=== PATIENT | female | born 1955 | race Caucasian/White ===

== ENCOUNTER → 2018-11-02 | Outpatient (CLI) | payer OTHER ==
--- NOTE | 2018-11-02 08:33 | WOMENS IMAGING REPORT ---
EXAM DESCRIPTION: BILAT SCREENING MAMMO W/CAD COMPLETED DATE/TIME: 11/02/2018 7:46 am REASON FOR STUDY: Z12.31 ENCOUNTER FOR SCREENING MAMMOGRAM FOR MALIGNANT NEOPLASM OF [id number] E NCNTR SCREEN MAMMOGRAM FOR MALIGNANT NEOPLASM OF JING COMPARISON: 2008, 2013 TECHNIQUE: Standard craniocaudal and mediolateral oblique views of each breast recorded using Prism Microwavea l acquisition. LIMITATIONS: None. FINDINGS: RIGHT BREAST MASSES: No suspicious masses. CALCIFICATIONS: No new or suspicious calcifications. ARCHITECTURAL DISTORTION: In the right retroareolar region, architectural distortion is present on th e CC view which may be in the 12 o'clock retroareolar region on MLO view. This requires further inve stigation with compression magnification views in the CC and MLO orientations, right breast 90 medio lateral view, and right breast ultrasound with particular attention to the retroareolar and 12 o'cloc k periareolar region. DEVELOPING DENSITY: None. ASYMMETRY: None noted. OTHER: No other significant findings. LEFT BREAST MASSES: No suspicious masses. CALCIFICATIONS: No new or suspicious calcifications. ARCHITECTURAL DISTORTION: None. DEVELOPING DENSITY: None. ASYMMETRY: None noted. OTHER: No other significant findings. Read with the assistance of CAD. .[facility] - R2 Cenova Version 1.3 .[facility] - R2 Cenova Version 1.3 .[facility] - R2 Cenova Version 2.4 .[facility] - R2 Cenova Version 2.4 .[facility] - R2 Show Worker Version 9.2 IMPRESSION: Architectural distortion on right breast CC view for which follow-up diagnostic mammogra ms and ultrasound are recommended. No mammographic evidence for malignancy left breast BREAST DENSITY: c. The breasts are heterogeneously dense, which may obscure small masses. BIRAD: 0 Incomplete: Needs Additional Imaging Evaluation and/or prior Mammograms for Comparison. RECOMMENDATION: RECOMMENDED FOLLOW-UP: Additional right breast diagnostic mammograms and ultrasound The patient will be contacted for additional imaging. COMMENT: The patient has been notified of the results by letter per MQSA requirements. Additional no tification policies are in place for contacting patient with suspicious or incomplete findings. Quality ID #[id number]: The [employer] recommends an annual screening mammogram for women aged 40 years or over. This facility utilizes a reminder system to ensure that all patients receive reminder letters, and/or direct phone calls for appointments. This includes reminders for routine scr eening mammograms, diagnostic mammograms, or other Breast Imaging Interventions when appropriate. Th is patient will be placed in the appropriate reminder system. The [employer] (ACR) has developed recommendations for screening MRI of the breast s in certain patient populations, to be used in conjunction with mammography. Breast MRI surveillanc e may be appropriate for women with more than 20% lifetime risk of developing breast cancer as deter mined by genetic testing, significant family history of the disease, or history of mantle radiation f or Hodgkins Disease. ACR Practice Guidelines 2008. TECHNICAL DOCUMENTATION: FINDING NUMBER: (1) ASSESSMENT: (1) JOB ID: [id number] [employer]- All Rights Reserved Reading location - IP/workstation name: [email or web address]
== END ==
LOC: WI 07:02
PROVIDERS: ATTEND Obstetrics & Gynecology Gynecology
DX: Z12.31 Encounter for screening mammogram for malignant neoplasm of breast (principal)
CPT/HCPCS: 77067

== ENCOUNTER → 2018-11-12 | Outpatient (CLI) | payer OTHER ==
--- NOTE | 2018-11-12 09:44 | WOMENS IMAGING REPORT ---
EXAM DESCRIPTION: 3D DX MAMMO RIGHT UNILAT; U/S BREAST UNILAT LIMITED COMPLETED DATE/TIME: 11/12/2018 9:18 am; 11/12/2018 9:27 am REASON FOR STUDY: INCONCLUSSIVE MAMMOGRAM;R92.2; RT BREAST ARCHITECTURAL DISTORTION R92.2 R92.2 INC ONCLUSIVE MAMMOGRAM COMPARISON: Multiple since 2008 TECHNIQUE: Cone compression craniocaudal and mediolateral oblique images of the right breast recorde d using digital acquisition and breast tomosynthesis. Right whole breast 90 mediolateral view. Right CC MLO and 90 mediolateral tomosynthesis. Right br east ultrasound. LIMITATIONS: None. FINDINGS: BREAST LATERALITY: Right MASSES: In the retroareolar region, a spiculated 1.5 cm mass is present with architectural distortion and ill-defined margins. No associated microcalcifications CALCIFICATIONS: No new or suspicious calcifications. ARCHITECTURAL DISTORTION: As above DEVELOPING DENSITY: None. ASYMMETRY: None noted. OTHER: No other significant findings. Read with the assistance of CAD. .[facility] - R2 Environmental Health Safety Engineer Version 9.2 Right breast ultrasound: Right breast ultrasound and right axilla ultrasound was performed in the right retroareolar region, a hypoechoic solid 1.5 x 2 cm nodule is present taller than wide with internal color flow highly suspi cious for malignancy. This correlates with the spiculated mass on the mammogram/ tomosynthesis today . Right axilla was examined with ultrasound. A 2.2 by 2 x 1.6 cm hypoechoic solid nodule is present wi th loss of central hilar fat worrisome for a malignant lymph node. IMPRESSION: Right breast retroareolar spiculated mass highly suspicious for malignancy BI-RADS 5 Right axillary enlarged hypoechoic lymph node highly suspicious for malignancy BI-RADS 5 BREAST DENSITY: c. The breasts are heterogeneously dense, which may obscure small masses. BIRAD: 5 Highly suggestive of malignancy. Biopsy should be performed in the absence of clinical cont ra-indication. RECOMMENDATION: RECOMMENDED FOLLOW UP: Ultrasound-guided core biopsy and post biopsy clip placement of the right breast retroareolar mass and right axillary lymph node with immediate post biopsy follow -up two-view mammograms SPECIFIC INTERVENTION/IMAGING/CONSULTATION RECOMMENDED:Ultrasound-guided core biopsy and post biopsy clip placement of the right breast retroareolar mass and right axillary lymph node, with immediate po st biopsy follow-up two-view mammograms COMMUNICATION:These findings were not discussed with the patient at time of service. Patient notifie d by letter COMMENT: The patient has been notified of the results by letter per SA requirements. Additional no tification policies are in place for contacting patient with suspicious or incomplete findings. Quality ID #[id number]: The [employer] recommends an annual screening mammogram for women aged 40 years or over. This facility utilizes a reminder system to ensure that all patients receive reminder letters, and/or direct phone calls for appointments. This includes reminders for routine scr eening mammograms, diagnostic mammograms, or other Breast Imaging Interventions when appropriate. Th is patient will be placed in the appropriate reminder system. TECHNICAL DOCUMENTATION: FINDING NUMBER: (1) ASSESSMENT: (1) JOB ID: [id number] [employer]- All Rights Reserved Reading location - IP/workstation name: [email or web address]
--- NOTE | 2018-11-12 09:44 | WOMENS IMAGING REPORT ---
EXAM DESCRIPTION: 3D DX MAMMO RIGHT UNILAT; U/S BREAST UNILAT LIMITED COMPLETED DATE/TIME: 11/12/2018 9:18 am; 11/12/2018 9:27 am REASON FOR STUDY: INCONCLUSSIVE MAMMOGRAM;R92.2; RT BREAST ARCHITECTURAL DISTORTION R92.2 R92.2 INC ONCLUSIVE MAMMOGRAM COMPARISON: Multiple since 2008 TECHNIQUE: Cone compression craniocaudal and mediolateral oblique images of the right breast recorde d using digital acquisition and breast tomosynthesis. Right whole breast 90 mediolateral view. Right CC MLO and 90 mediolateral tomosynthesis. Right br east ultrasound. LIMITATIONS: None. FINDINGS: BREAST LATERALITY: Right MASSES: In the retroareolar region, a spiculated 1.5 cm mass is present with architectural distortion and ill-defined margins. No associated microcalcifications CALCIFICATIONS: No new or suspicious calcifications. ARCHITECTURAL DISTORTION: As above DEVELOPING DENSITY: None. ASYMMETRY: None noted. OTHER: No other significant findings. Read with the assistance of CAD. .[facility] - R2 Lens Grinding Machine Operator Version 9.2 Right breast ultrasound: Right breast ultrasound and right axilla ultrasound was performed in the right retroareolar region, a hypoechoic solid 1.5 x 2 cm nodule is present taller than wide with internal color flow highly suspi cious for malignancy. This correlates with the spiculated mass on the mammogram/ tomosynthesis today . Right axilla was examined with ultrasound. A 2.2 by 2 x 1.6 cm hypoechoic solid nodule is present wi th loss of central hilar fat worrisome for a malignant lymph node. IMPRESSION: Right breast retroareolar spiculated mass highly suspicious for malignancy BI-RADS 5 Right axillary enlarged hypoechoic lymph node highly suspicious for malignancy BI-RADS 5 BREAST DENSITY: c. The breasts are heterogeneously dense, which may obscure small masses. BIRAD: 5 Highly suggestive of malignancy. Biopsy should be performed in the absence of clinical cont ra-indication. RECOMMENDATION: RECOMMENDED FOLLOW UP: Ultrasound-guided core biopsy and post biopsy clip placement of the right breast retroareolar mass and right axillary lymph node with immediate post biopsy follow -up two-view mammograms SPECIFIC INTERVENTION/IMAGING/CONSULTATION RECOMMENDED:Ultrasound-guided core biopsy and post biopsy clip placement of the right breast retroareolar mass and right axillary lymph node, with immediate po st biopsy follow-up two-view mammograms COMMUNICATION:These findings were not discussed with the patient at time of service. Patient notifie d by letter COMMENT: The patient has been notified of the results by letter per SA requirements. Additional no tification policies are in place for contacting patient with suspicious or incomplete findings. Quality ID #[id number]: The [employer] recommends an annual screening mammogram for women aged 40 years or over. This facility utilizes a reminder system to ensure that all patients receive reminder letters, and/or direct phone calls for appointments. This includes reminders for routine scr eening mammograms, diagnostic mammograms, or other Breast Imaging Interventions when appropriate. Th is patient will be placed in the appropriate reminder system. TECHNICAL DOCUMENTATION: FINDING NUMBER: (1) ASSESSMENT: (1) JOB ID: [id number] [employer]- All Rights Reserved Reading location - IP/workstation name: [email or web address]
== END ==
LOC: WI 08:09
PROVIDERS: ATTEND Obstetrics & Gynecology Gynecology
DX: R92.2 Inconclusive mammogram (principal)
CPT/HCPCS: 76642

== ENCOUNTER → 2019-03-15 | Outpatient (CLI) | payer OTHER ==
--- NOTE | 2019-03-15 12:49 | WOMENS IMAGING REPORT ---
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 TECHNIQUE: Dual-Energy X-ray Absorptiometry (DEXA) of the AP Spine and Hip. LIMITATIONS: None. FINDINGS: LUMBAR SPINE: The bone mineral density (BMD) measured from L1-L4 in the AP projection correlates with a T-score of 1.0, which is normal as defined by the World Health Organization. BMD Change vs Baseline: N/A HIP: The bone mineral density (BMD) measured in the left hip correlates with a T-score of -0.5 in the femo ral neck, which is normal as defined by the World Health Organization. BMD Change vs Baseline: N/A 10 year Fracture Risk Assessment: Major Osteoporotic Fracture: Not available. Hip Fracture: Not available. IMPRESSION: 1. LUMBAR SPINE WHO CLASSIFICATION: Normal 2. HIP WHO CLASSIFICATION: Normal OVERALL ASSESSMENT: WHO CLASSIFICATION: Norm COMMENT: The World Health Organization defines low BMD as follows: T-score: Normal: Greater than -1.0 Osteopenia: Between -1.0 and -2.5 Osteoporosis: Less than -2.5 without fractures Established osteoporosis: Less than -2.5 with fractures In general, you may wish to consider: Diagnosis Treatment Follow-up DEXA Normal BMD Prevention 2-3 years Osteopenia Prevention/Therapy 1-2 years Osteoporosis Therapy Yearly TECHNICAL DOCUMENTATION: JOB ID: [id number] [employer]- All Rights Reserved Reading location - IP/workstation name: [email or web address]
== END ==
LOC: WI 11:07
PROVIDERS: ATTEND Internal Medicine Hematology & Oncology
DX: C50.911 Malignant neoplasm of unspecified site of right female breast (principal); Z17.0 Estrogen receptor positive status [ER+]
CPT/HCPCS: 77080

== ENCOUNTER → 2019-05-25 | Outpatient (CLI) | payer OTHER ==
--- NOTE | 2019-05-25 09:01 | WOMENS IMAGING REPORT ---
EXAM DESCRIPTION: U/S ABDOMEN LIMITED COMPLETED DATE/TIME: 05/25/2019 8:49 am REASON FOR STUDY: R74.8 ABNORMAL LEVELS OF OTHER SERUM ENZYMES R74.8 ABNORMAL LEVELS OF OTHER SERUM ENZYMES COMPARISON: None. TECHNIQUE: Dynamic and static grayscale images acquired of the abdomen and recorded on PACS. Additio nal selected color Doppler and spectral images recorded. LIMITATIONS: None. FINDINGS: PANCREAS: Visualized portions the pancreas are normal in appearance. LIVER: No masses. Echotexture normal. LIVER VASCULATURE: Normal directional flow of the main portal vein and hepatic veins. GALLBLADDER: No stones. Normal wall thickness. No pericholecystic fluid. ULTRASOUND-DETECTED KIM'S SIGN: Negative. INTRAHEPATIC DUCTS AND COMMON DUCT: CBD and intrahepatic ducts normal caliber. No filling defects. INFERIOR VENA CAVA: Normal flow. AORTA: No aneurysm. RIGHT KIDNEY: Normal size. Normal echogenicity. No solid or suspicious masses. No hydronephrosis. No calcifications. There is a simple 3 cm cyst. PERITONEAL AND RIGHT PLEURAL SPACE: No ascites or effusions. OTHER: No other significant findings. IMPRESSION: Simple 3 cm right renal cyst. Otherwise negative right upper quadrant ultrasound. TECHNICAL DOCUMENTATION: JOB ID: [id number] [employer]- All Rights Reserved Reading location - IP/workstation name: [email or web address]
== END ==
LOC: WI 07:15
PROVIDERS: ATTEND Physician Assistant
DX: R74.8 Abnormal levels of other serum enzymes (principal); N28.1 Cyst of kidney, acquired
CPT/HCPCS: 76705

== ENCOUNTER 2019-08-17 11:12 | Emergency (ER) | payer OTHER ==
[2019-08-17] MEDS ORDERED: ASPIRIN 81 MG TABLET, CHEWABLE PO ONE (13:03)
--- NOTE | 2019-08-17 13:08 | ER Document Report ---
ED Medical Screen (RME) - General Chief Complaint: Back Pain Stated Complaint: BACK PAIN Time Seen by Provider: 08/17/19 13:00 Primary Care Provider: STEPHANY GONSALES PA-C [Primary Care Provider] - Follow up as needed Notes: HPI: 64-year-old female presenting to the emergency department for evaluation of right posterior thoracic pain and shortness of breath. Symptoms started while at work 2 days ago. Patient states that she does have a history of SVT and possibly atrial fibrillation has followed with a scientist electronics in [place]. Patient states that she began having increasing shortness of breath today, went to an urgent care where they determined that her heart rate was greater than 140 and sent her to the emergency department for evaluation. Patient is not on blood thinners. She does report difficulty taking a deep breath in secondary to pain in the right chest I have greeted and performed a rapid initial assessment of this patient. A comprehensive ED assessment and evaluation of the patient, analysis of test results and completion of the medical decision making process will be conducted by additional ED providers PHYSICAL EXAMINATION: GENERAL: Well-appearing, well-nourished and in moderate acute distress. HEAD: Atraumatic, normocephalic. EYES: sclera anicteric, conjunctiva are normal. ENT: Moist mucous membranes. NECK: Normal range of motion LUNGS: Normal work of breathing, decreased breath sounds right chest HEART: 2+ radial pulses bilaterally, irregularly irregular, tachycardic ABD: limited by positioning for exam in triage. EXTREMITIES: no pitting or edema. No cyanosis. NEUROLOGICAL: No focal neurological deficits. Moves all extremities spontaneously and on command. PSYCH: Normal mood, normal affect. SKIN: Warm, Dry, normal turgor, no rashes or lesions noted. TRAVEL OUTSIDE OF THE [place] IN LAST 30 DAYS: No - Related Data Allergies/Adverse Reactions: No Known Allergies Allergy (Unverified 08/17/19 12:52) Physical Exam - Vital signs Vitals: Temp Pulse BP Pulse Ox 97.7 F 142 H 133/77 H 98 08/17/19 12:36 08/17/19 12:36 08/17/19 12:36 08/17/19 12:36 Course - Vital Signs Vital signs: Temp Pulse Resp BP Pulse Ox 97.7 F 142 H 133/77 H 98 08/17/19 12:36 08/17/19 12:36 08/17/19 12:36 08/17/19 12:36 Doctor's Discharge - Discharge Referrals: STEPHANY GONSALES PA-C [Primary Care Provider] - Follow up as needed
--- NOTE | 2019-08-17 13:40 | RADIOLOGY REPORT (SQ) ---
EXAM DESCRIPTION: CHEST SINGLE VIEW COMPLETED DATE/TIME: 08/17/2019 12:20 pm REASON FOR STUDY: Afib. History of right breast cancer COMPARISON: None. EXAM PARAMETERS: NUMBER OF VIEWS: One view. TECHNIQUE: Single frontal radiographic view of the chest acquired. RADIATION DOSE: NA LIMITATIONS: None. FINDINGS: LUNGS AND PLEURA: Linear pleural and parenchymal scarring in the right upper lobe, possibl y post radiation change. No focal consolidation or pleural effusion. No pneumothorax. MEDIASTINUM AND HILAR STRUCTURES: No masses. Contour normal. HEART AND VASCULAR STRUCTURES: Heart normal in size. Normal vasculature. BONES: No acute findings. HARDWARE: None in the chest. OTHER: No other significant finding. IMPRESSION: Pleural and parenchymal scarring in the right upper lobe. No acute cardiopulmonary dise ase. TECHNICAL DOCUMENTATION: JOB ID: [id number] [employer]- All Rights Reserved Reading location - IP/workstation name: [email or web address]
[2019-08-17 13:57] LABS: ABSOLUTE BASOPHILS # (AUTO) 0.1 10^3/uL (0.0-0.2); ABSOLUTE EOSINOPHILS # (AUTO) 0.1 10^3/uL (0.0-0.6); ABSOLUTE LYMPHOCYTES (AUTO) 0.6 10^3/uL (0.5-4.7); ABSOLUTE MONOCYTES (AUTO) 0.5 10^3/uL (0.1-1.4); ABSOLUTE NEUT (AUTO) 5.7 10^3/uL (1.7-8.2); HEMATOCRIT 42.8 % (36.0-47.0); HEMOGLOBIN 15.2 g/dL (12.0-15.5); LYMPHOCYTES % (AUTO) 9.3 % (13-45); MEAN CORPUSCULAR HGB CONC 35.5 g/dL (32.0-36.0); MEAN CORPUSCULAR VOLUME 87 fl (80-97); MONOCYTES % (AUTO) 7.3 % (3-13); PLATELET COUNT 297 10^3/uL (150-450); RED CELL DISTRIBUTION WIDTH 13.2 % (11.5-14.0); SEGMENTED NEUTROPHILS % (AUTO) 81.4 % (42-78); TOTAL CELLS COUNTED % (AUTO) 100 %
[2019-08-17 14:05] LABS: INTERNATIONAL RATION (INR) 0.94; PROTHROMBIN TIME 12.6 SEC (11.4-15.4)
[2019-08-17 14:23] LABS: ALBUMIN 4.2 g/dL (3.5-5.0); ALKALINE PHOSPHATASE 81 U/L (38-126); ANION GAP 7 (5-19); ASPARTATE AMINO TRANSFERASE 27 U/L (14-36); BILIRUBIN,DIRECT 0.1 mg/dL (0.0-0.4); BILIRUBIN,TOTAL 0.7 mg/dL (0.2-1.3); BLOOD UREA NITROGEN 16 mg/dL (7-20); CALCIUM 9.7 mg/dL (8.4-10.2); CARBON DIOXIDE 29 mmol/L (22-30); CHLORIDE 101 mmol/L (98-107); GLUCOSE 94 mg/dL (75-110); POTASSIUM 4.9 mmol/L (3.6-5.0); TOTAL PROTEIN 7.1 g/dL (6.3-8.2)
--- NOTE | 2019-08-17 15:49 | RADIOLOGY REPORT (SQ) ---
EXAM DESCRIPTION: CTA CHEST COMPLETED DATE/TIME: 08/17/2019 3:11 pm REASON FOR STUDY: pulmonary embolus COMPARISON: None. TECHNIQUE: CT scan of the chest performed using helical scanning technique with dynamic intravenous contrast injection. Images reviewed with lung, soft tissue and bone windows. Reconstructed coronal and sagittal MPR images reviewed. Additional 3 dimensional post-processing performed to develop Maximal Intensity Projection images (NC P). All images stored on PACS. All CT scanners at this facility use dose modulation, iterative reconstruction, and/or weight based d osing when appropriate to reduce radiation dose to as low as reasonably achievable (ALARA). [facility]: Dose Right [facility]: CareDose [facility]: Dose Right [facility]: Teradose 4D [facility]: [employer] CONTRAST TYPE AND DOSE: Contrast/concentration: Isovue 350.00 mg/ml; Total Contrast Delivered: 65.0 ml; Total Saline Delivered: 73.0 ml Contrast bolus optimized for the pulmonary arteries. RENAL FUNCTION: Creatinine 0.78 milligrams/deciliter RADIATION DOSE: CT Rad equipment meets quality standard of care and radiation dose reduction techniq ues were employed. CTDIvol: 9.9 - 15.4 mGy. DLP: 565 mGy-cm. . LIMITATIONS: None. FINDINGS: LUNGS AND PLEURA: The trachea main bronchi are patent. There is mild bronchial wall thick ening without bronchiectasis or segmental mucus plugging. The mosaic attenuation pattern of the lung parenchyma is nonspecific and in the setting of the aforementioned bronchial wall thickening could r epresent an underlying small airways disease. The subpleural opacities in the right upper lobe are n onspecific and in the setting of surgical clips and skin thickening in the overlying right breast cou ld represent the sequela of prior radiation therapy. There is no consolidation, pleural effusion or greater than 6 mm pulmonary nodular mass. AORTA AND GREAT VESSELS: Evaluation is limited as the contrast bolus was optimized for evaluation of the pulmonary arteries. There is no thoracic aortic dissection or aneurysm. HEART: No cardiomegaly or pericardial effusion. PULMONARY ARTERIES: No pulmonary embolus. HILAR AND MEDIASTINAL STRUCTURES: No adenopathy or mass. HARDWARE: None in the chest. UPPER ABDOMEN: Renal cysts. THYROID AND OTHER SOFT TISSUES: Spiculated nodular soft tissue density in the right adnexa (image 38 of series 3) that measures 2.3 x 1.6 cm. BONES: No acute or finding. 3D MIPS: Confirm above findings. OTHER: No other finding. IMPRESSION: 1. No pulmonary embolus. 2. Nonspecific mosaic attenuation pattern of the lung parenchyma that in the setting of bronchial wa ll thickening could represent an underlying small airways disease. 3. Subpleural opacities in the right upper lobe - does the patient have a history radiation therapy for breast cancer? 4. Spiculated nodular soft tissue density in the right adnexa (image 38 of series 3) that measures 2 .3 x 1.2 cm - correlate with surgical and clinical history. COMMENT: Quality ID # [id number]: Final reports with documentation of one or more dose reduction techniques (e.g., Automated exposure control, adjustment of the mA and/or kV according to patient size, use of iterative reconstruction technique) TECHNICAL DOCUMENTATION: JOB ID: [id number] [employer]- All Rights Reserved Reading location - IP/workstation name: [email or web address]
[2019-08-17] MEDS ORDERED: DIAZEPAM 2 MG TABLET PO ONE (17:13)
--- NOTE | 2019-08-17 17:16 | ER Document Report ---
ED General - General Chief Complaint: Shortness Of Breath Stated Complaint: BACK PAIN Time Seen by Provider: 08/17/19 13:00 Primary Care Provider: STEPHANY GONSALES PA-C [NO LOCAL MD] - Follow up tomorrow Notes: Patient is a 64-year-old female who comes in complaining of upper back pain. She seen in urgent care hoping to get something for pain but was sent in due to rapid A. fib. Patient has a history of atrial fibrillation and takes metoprolol 12.5 mg at night for it. She is not on any anticoagulation. Patient also has a history of breast cancer but has had lumpectomy, lymph node removal, and is not receiving any active treatment for it. Her next follow-up with her gate clerk and oncologist is in November. Denies any chest pain. Had some shortness of breath and was sent to the ER for further evaluation for possible pulmonary embolus. TRAVEL OUTSIDE OF THE [place] IN LAST 30 DAYS: No - Related Data Allergies/Adverse Reactions: No Known Allergies Allergy (Unverified 08/17/19 12:52) Past Medical History - General Information source: Patient - Social History Smoking Status: Never Smoker Chew tobacco use (# tins/day): No Frequency of alcohol use: None Drug Abuse: None Family History: Reviewed & Not Pertinent Patient has suicidal ideation: No Patient has homicidal ideation: No - Past Medical History Cardiac Medical History: Reports: Hx Atrial Fibrillation Malignancy Medical History: Reports: Hx Breast Cancer Review of Systems - Review of Systems Cardiovascular: denies: No symptoms reported, See HPI, Chest pain, Palpitations, Heart racing, Orthopnea, Dyspnea, Syncope, Dizziness, Lightheaded, Edema, Other, Paroxysmal Nocturnal Dysp Respiratory: See HPI Musculoskeletal: See HPI -: Yes All other systems reviewed and negative Physical Exam - Vital signs Vitals: Temp Pulse BP Pulse Ox 97.7 F 142 H 133/77 H 98 08/17/19 12:36 08/17/19 12:36 08/17/19 12:36 08/17/19 12:36 Interpretation: Normal - General General appearance: Appears well, Alert - HEENT Head: Normocephalic, Atraumatic Eyes: Normal Pupils: PERRL - Respiratory Respiratory status: No respiratory distress Chest status: Nontender Breath sounds: Normal Chest palpation: Normal - Cardiovascular Rhythm: Irregularly irregular, Tachycardia Heart sounds: Normal auscultation Murmur: No - Abdominal Inspection: Normal Distension: No distension Bowel sounds: Normal Tenderness: Nontender Organomegaly: No organomegaly - Back Back: Normal, Tender - Along medial scapula and into right axilla - Extremities General upper extremity: Normal inspection, Nontender, Normal color, Normal ROM, Normal temperature General lower extremity: Normal inspection, Nontender, Normal color, Normal ROM, Normal temperature, Normal weight bearing. No: Lisa's sign - Neurological Neuro grossly intact: Yes Cognition: Normal Orientation: AAOx4 Carmel Coma Scale Eye Opening: Spontaneous Carmel Coma Scale Verbal: Oriented Carmel Coma Scale Motor: Obeys Commands Carmel Coma Scale Total: 15 Speech: Normal Motor strength normal: LUE, RUE, LLE, RLE Sensory: Normal - Psychological Associated symptoms: Normal affect, Normal mood - Skin Skin Temperature: Warm Skin Moisture: Dry Skin Color: Normal Course - Re-evaluation Re-evalutation: 08/17/19 18:00 Patient with rapid A. fib. Heart rate waxes and wanes from 120s to 170s. Patient treated with medication for pain including Valium and Lidoderm and she had tried Vicodin at home. Heart rate is now down to the 80s and appears sinus. Discussed with cardiology at [facility] who instructs that patient should follow-up with outpatient cardiology. Would not change medications or start anticoagulation right now as she is in a sinus rhythm. 08/17/19 18:[address] Singh from oncology at [facility] regarding spiculated lesion in patient's right axilla. Patient will receive a copy of the CD and films will be pushed to [facility]. They will follow-up with the patient as an outpatient. No necessitation for transfer at this time. 08/17/19 19:00 EKG showing normal sinus rhythm at 89. Patient is more comfortable at this time. No acute findings on blood work. No further concerns. Stable for discharge. Understands and agrees with plan. Follow-up with cardiology regarding atrial fibrillation and oncology regarding CT finding as outpatient. Stable for discharge. Return if further concerns. - Vital Signs Vital signs: Temp Pulse Resp BP Pulse Ox 97.5 F 142 H 23 H 98/68 L 97 08/17/19 19:01 08/17/19 12:36 08/17/19 19:01 08/17/19 19:00 08/17/19 19:01 - Laboratory Result Diagrams: 08/17/19 13:42 08/17/19 13:42 Laboratory results interpreted by me: 08/17/19 13:42 Lymph % (Auto) 9.3 L Seg Neutrophils % 81.4 H - Diagnostic Test Radiology reviewed: Reports reviewed - EKG Interpretation by Me Rate: Tachycardia Rhythm: A.Fib - 125 When compared to previous EKG there are: Other - no ST changes Critical Care Note - Critical Care Note Total time excluding time spent on procedures (mins): 40 - Evaluation and management of atrial fibrillation, management of pain, consultation with specialist, discussion and counseling of patient. Multiple re-evaluations Discharge - Discharge Clinical Impression: Atrial fibrillation with RVR Back pain Qualifiers: Back pain location: thoracic back pain Chronicity: acute Back pain laterality: right Qualified Code(s): M54.6 - Pain in thoracic spine Condition: Stable Disposition: HOME, SELF-CARE Instructions: Atrial Fibrillation ([facility]), Muscle Strain ([facility]) Additional Instructions: Please follow-up with your gate clerk and oncologist. Please take a copy of your blood work, EKG, and CT with you. Prescriptions: Diazepam [Valium 2 mg Tablet] 2 mg PO Q8HP PRN #15 tablet PRN Reason: Lidocaine [Lidoderm 5% (700 mg) Transdermal Patch] 1 patch TP DAILY #14 adh..patch Forms: Return to Work Referrals: STEPHANY GONSALES PA-C [NO LOCAL MD] - Follow up tomorrow
[2019-08-17] MEDS ORDERED: DILTIAZEM HCL INJ 25 MG/5 ML VIAL IV ONE (17:45)
[2019-08-17] MEDS ORDERED: NORMAL SALINE 250 ML IV ONE (17:49)
[2019-08-17] MEDS ORDERED: LIDOCAINE 5% (700 MG) TRANSDERMAL ADH..PATCH TP ONE (17:49)
--- NOTE | 2019-08-17 18:33 | EKG REPORT ---
SEVERITY:- ABNORMAL ECG - ATRIAL FIBRILLATION, V-RATE 84-174 CONSIDER POSTERIOR INFARCT BORDERLINE T ABNORMALITIES, INFERIOR LEADS : Confirmed by: Isadora Martinez MD 17-Aug-2019 18:33:13
--- NOTE | 2019-08-17 18:33 | EKG REPORT ---
SEVERITY:- ABNORMAL ECG - ATRIAL FIBRILLATION WITH RAPID V-RATE CONSIDER POSTERIOR INFARCT REPOLARIZATION ABNORMALITY, PROB RATE RELATED : Confirmed by: Isadora Martinez MD 17-Aug-2019 18:33:09
[2019-08-17 19:12] VITALS: BP 98/68
--- NOTE | 2019-08-18 19:35 | EKG REPORT ---
SEVERITY:- NORMAL ECG - SINUS RHYTHM : Confirmed by: Isadora Martinez MD 18-Aug-2019 19:34:53
== END 2019-08-17 19:17 | disposition home or self-care (01) ==
LOC: ER 11:12
DX: I48.91 Unspecified atrial fibrillation (principal); M54.6 Pain in thoracic spine; R06.02 Shortness of breath; M54.9 Dorsalgia, unspecified; Z79.899 Other long term (current) drug therapy
CPT/HCPCS: 93005; 36415; 84443; 85025; 85610; 80053; 84484; 71045; 71275; 93010; J3490; J7050; 99285